=== PATIENT | female | born 1985 | race Caucasian/White ===

== ENCOUNTER → 2017-06-30 | Outpatient (CLI) | payer OTHER ==
[~2017-06-30] MED LIST: CENTRUM SILVER1 EAC4 PO; ELIQUIS5 MG PO; FAMOTIDINE20 MG PO; FEVERALL650 MG RECTAL; FOLIC ACID1 MG PO; IRON325 PO; LASIX 20 MG TAB20 MG PO; MICONAZOLE 324 GM VAG; ONDANSETRON HCL4 M2 PO; OXYBUTYNIN 5 MG5 M2 PO; OXYCODONE H5 MG/5 ML PO; OXYCODONE HCL 55 MG PO; OXYCODONE HCL10 MG PO; PERIDEX15 ML PO; POTASSIUM20 MEQ/15 PO; SYNTHROID100 MCG PO; UNASYN 3 GM VIAL3 G1 IV; VANCOMYCIN HCL 11 G2 IVPB; ZOSYN 3.373.375 GM/1 IV
== END ==
LOC: HYPER 06-24 06:42
DX: L89.154 Pressure ulcer of sacral region, stage 4 (principal); L89.324 Pressure ulcer of left buttock, stage 4; L89.314 Pressure ulcer of right buttock, stage 4; L89.612 Pressure ulcer of right heel, stage 2; L89.622 Pressure ulcer of left heel, stage 2; G82.21 Paraplegia, complete; R32 Unspecified urinary incontinence; B19.9 Unspecified viral hepatitis without hepatic coma; Z86.711 Personal history of pulmonary embolism; Z86.14 Personal history of Methicillin resistant Staphylococcus aureus infection

== ENCOUNTER 2017-08-05 06:48 | Inpatient (IN) | payer OTHER ==
[~2017-08-05] VITALS: Ht 172.7 cm; Wt 67.6 kg
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
--- NOTE | ~2017-08-05 | 2DMMODE ---
[facility] [address] [place] [address] 2 D/M-MODE ECHOCARDIOGRAM Name: RUBEN MOSS Room #: 210-P ADM IN M.R.#: [id number] Admission: 08/05/17 Attend Phys: Leander Eason, Discharge: Date of : 85 Date of Service: 08/11/17 1558 Report #: [id number] THIS REPORT FOR: //name// APPROVED REPORT Study performed: 08/11/2017 15:13:07 EXAM: Comprehensive 2D, Doppler, and color-flow Echocardiogram Patient Location: Bedside Room #: 210 BSA: 1.77 BP: 124/54 mmHg Rhythm: Tachycardia Other Information Study Quality: Adequate Indications MRSA, bacteremia 2D Dimensions RVDd: 27.02 mm LVEF(%): 54.17 (>50%) IVSd: 7.99 (7-11mm) LVOT Diam: 19.72 (18-24mm) LVDd: 46.44 mm PWd: 7.73 (7-11mm) Ascending Ao: 21.99 (22-36mm) LVDs: 33.46 (25-40mm) Aortic Root: 24.21 mm IVC: 20.00 mm Bragg's LVEF: 54.17 % Volumes Left Atrial Volume (Systole) Single Plane 4CH: 8.56 mL Single Plane 2CH: 20.00 mL LA ESV Index: 9.00 mL/m2 Aortic Valve AoV Peak Melvin.: 1.58 m/s AO Peak Gr.: 9.93 mmHg LVOT Max P.57 mmHg LVOT Max V: 1.18 m/s YESENIA Vmax: 2.29 cm2 Mitral Valve E/A Ratio: 0.8 MV Decel. Time: 152.48 ms [facility] [place] [address] [place] [address] 2 D/M-MODE ECHOCARDIOGRAM Name: RUBEN MOSS Room #: [address] [place] [address] IN .R.#: [id number] Admission: 08/05/17 Attend Phys: Leander Eason, Discharge: Date of : 85 Date of Service: 08/11/17 1558 Report #: [id number] MV E Max Melvin.: 0.68 m/s MV A Melvin.: 0.83 m/s MV PHT: 44.22 ms IVRT: 78.43 ms Pulmonary Valve PV Peak Melvin.: 1.22 m/s PV Peak Gr.: 5.97 mmHg Pulmonary Vein P Vein S: 0.58 m/s P Vein A: 0.18 m/s P Vein D: 0.67 m/s P Vein A Dur.: 66.9 msec P Vein S/D Ratio: 0.87 Tricuspid Valve TR Peak Melvin.: 3.35 m/s RAP Estimate: 5.00 mmHg TR Peak Gr.: 44.83 mmHg PA Pressure: 50.00 mmHg Left Ventricle The left ventricle is normal size. There is normal LV segmental wall motion. There is normal left ventricular wall thickness. The left ventricular systolic function is normal. The left ventricular ejection fraction is within the normal range. LVEF is 50-55%. Mild diastolic dysfunction is present (impaired relaxation pattern). Right Ventricle The right ventricle is normal size. The right ventricular systolic function is normal. Atria The left atrium size is normal. The right atrium size is normal. Aortic Valve The aortic valve is normal in structure. No aortic regurgitation is present. There is no aortic valvular stenosis. Mitral Valve The mitral valve is normal in structure. There is no mitral valve regurgitation noted. No evidence of mitral valve stenosis. Tricuspid Valve The tricuspid valve is normal in structure. Trace to mild tricuspid regurgitation. PAP is estimated at [address] [facility] [place] [address] [place] [address] 2 D/M-MODE ECHOCARDIOGRAM Name: RUBEN MOSS Room #: 210-P [facility] IN ..#: [id number] Admission: 08/05/17 Attend Phys: Leander Eason, Discharge: Date of : 85 Date of Service: 08/11/17 1558 Report #: [id number] Pulmonic Valve The pulmonary valve is normal in structure. There is no pulmonic valvular regurgitation. Great Vessels The aortic root is normal in size. IVC is upper limits of normal in size and collapses >50% with inspiration. Pericardium There is no pericardial effusion. <Conclusion> The left ventricular systolic function is normal. EF 55% The aortic valve is normal in structure. No aortic regurgitation or stenosis The mitral valve is normal in structure. No mitral valve regurgitation noted. Pulmonary artery pressure of 50mmHg There is no pericardial effusion. <ELECTRONICALLY SIGNED> By: Joe Mauricio MD, FACC 08/11/17 1558 1558 1558 Joe Mauricio MD, FACC /INF
--- NOTE | ~2017-08-05 | EKG ---
[address] [address] ELECTROCARDIOGRAM REPORT Name: RUBEN MOSS Room #: 210-P ADM IN M.R.#: [id number] Admission: 08/05/17 Attend Phys: Leander Eason DO Discharge: Date of : 85 Report #: [id number] THIS REPORT FOR: //name// [facility] ED Test Date: 2017-08-05 Test Time: 11:29:20 Pat Name: RUBEN MOSS Department: Room: 210 P Gender: F Plate Fitter: eliud : 1985 Requested By: Dirk Catherine Order Number: [id number] MD: Bill Lemon Measurements Intervals [place] Rate: 176 P: 69 PA: 107 QRS: 52 QRSD: 80 T: -29 QT: 279 QTc: 478 Interpretive Statements Sinus tachycardia Borderline low voltage, extremity leads Artifact in lead(s) I,II,aVR,aVL,V1,V2,V3,V4,V5,V6 No previous ECG available for comparison Electronically Signed On 08-05-2017 15:32:44 SENIOR SUSTAINABILITY ADVISOR by Bill Lemon [email or web address] <ELECTRONICALLY SIGNED> By: Bill Lemon MD 08/05/17 1532 1129 [id number] Bill Lemon MD /EPI
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
--- NOTE | ~2017-08-05 | EKG ---
[address] [address] ELECTROCARDIOGRAM REPORT Name: RUBEN MOSS Room #: 210-P ADM IN M.R.#: [id number] Admission: 08/05/17 Attend Phys: Leander Eason DO Discharge: Date of : 85 Report #: [id number] THIS REPORT FOR: //name// [facility] Test Date: 2017-08-07 Test Time: 08:28:56 Pat Name: RUBEN MOSS Department: Room: 210 P Gender: F Network Consultant: GREGORIO : 1985 Requested By: Joe Mauricio Order Number: [id number] MD: Bill Lemon Measurements Intervals [place] Rate: 175 P: 89 MA: 111 QRS: 49 QRSD: 74 T: 50 QT: 306 QTc: 522 Interpretive Statements Sinus tachycardia Borderline low voltage, extremity leads Electronically Signed On 08-07-2017 9:55:46 ELECTRIC SYSTEM OPERATOR by Bill Lemon [email or web address] <ELECTRONICALLY SIGNED> By: Bill Lemon MD 08/07/17 0955 0828 0828 Bill Lemon MD /DEBO
[2017-08-05 06:49] VITALS: BP 111/55
[2017-08-05] MEDS ORDERED: PRO STAT PO (07:38)
[2017-08-05 09:13] LABS: HEMATOCRIT 22.7 % (37.0-47.0); HEMOGLOBIN 7.5 gm/dL (12.0-15.0); MCH 22.8 pg (26.0-34.0); PLATELET COUNT 168 thou/uL (150-400); RBC 3.29 mil/uL (4.20-5.00); RDW 19.6 % (10.5-14.5); WBC 4.2 thou/uL (4.0-11.0)
[2017-08-05 09:26] LABS: CALCIUM 7.7 mg/dL (8.5-10.1); CREATININE 0.7 mg/dL (0.6-1.0); POTASSIUM 3.4 mmol/L (3.5-5.1)
[2017-08-05 09:28] LABS: APTT 54.6 Seconds (24.5-32.8); INR 1.4; PROTIME 14.2 Seconds (9.3-11.4)
[2017-08-05 10:18] LABS: ABSOLUTE NEUTROPHILS 3.4 thou/uL (1.4-8.2)
[2017-08-05 10:19] LABS: ANISOCYTOSIS 1+; HYPOCHROMASIA 2+; MICROCYTES 2+; OVALOCYTES FEW
[2017-08-05 12:27] LABS: TSH 4.827 uIU/mL (0.358-3.740)
[2017-08-05 12:41] LABS: % SATURATION 16 % (20-39); IRON 12 ug/dL (50-170); TIBC 73 ug/dL (250-450)
[2017-08-05 13:50] VITALS: BP 91/41
[2017-08-05 14:02] VITALS: BP 109/65
[2017-08-05 15:12] VITALS: BP 113/62
[2017-08-05 20:15] VITALS: BP 108/61
[2017-08-06] VITALS (8 sets, daily range): BP systolic 81–106; BP diastolic 40–58
[2017-08-06 05:58] LABS: WBC 3.3 thou/uL (4.0-11.0)
[2017-08-06 06:00] LABS: HEMATOCRIT 22.5 % (37.0-47.0); HEMOGLOBIN 7.3 gm/dL (12.0-15.0); MCH 22.8 pg (26.0-34.0); MCHC 32.4 g/dL (28.0-37.0); MCV 70.2 fL (80.0-100.0); PLATELET COUNT 140 thou/uL (150-400); RDW 20.2 % (10.5-14.5)
[2017-08-06 06:21] LABS: ALBUMIN 1.2 g/dL (3.4-5.0); CALCIUM 7.4 mg/dL (8.5-10.1); CREATININE 0.7 mg/dL (0.6-1.0); MAGNESIUM 1.8 mg/dL (1.8-2.4); POTASSIUM 3.3 mmol/L (3.5-5.1); TOTAL BILIRUBIN 0.5 mg/dL (<0.1-1.0); TOTAL PROTEIN 5.3 g/dL (6.4-8.2)
[2017-08-06 07:00] LABS: ABSOLUTE NEUTROPHILS 2.6 thou/uL (1.4-8.2)
[2017-08-06 07:01] LABS: ANISOCYTOSIS 2+; HYPOCHROMASIA 2+; MICROCYTES 2+
[2017-08-07 01:31] LABS: CALCIUM 6.9 mg/dL (8.5-10.1); CREATININE 0.8 mg/dL (0.6-1.0); MCH 22.8 pg (26.0-34.0); MCHC 32.3 g/dL (28.0-37.0); MCV 70.6 fL (80.0-100.0); POTASSIUM 3.1 mmol/L (3.5-5.1); RBC 2.77 mil/uL (4.20-5.00); RDW 19.8 % (10.5-14.5); WBC 2.7 thou/uL (4.0-11.0)
[2017-08-07 01:35] LABS: HEMATOCRIT 19.6 % (37.0-47.0); HEMOGLOBIN 6.3 gm/dL (12.0-15.0)
[2017-08-07 04:01] LABS: ATYPICAL LYMPHS 1 %
[2017-08-07 04:03] LABS: PLATELET COUNT ND thou/uL (150-400)
[2017-08-07 04:04] LABS: ANISOCYTOSIS 3+; HYPOCHROMASIA SLIGHT; MICROCYTES 1+
[2017-08-07 04:35] VITALS: BP 104/55; BP 113/54
[2017-08-07 04:43] VITALS: BP 87/49
[2017-08-07 07:55] VITALS: BP 113/53
[2017-08-07 09:06] LABS: AMP/METHAMP Negative (Negative); BARBITURATES Negative (Negative); BENZODIAZEPINES Negative (Negative); COCAINE Negative (Negative); METHADONE Negative (Negative); OPIATES POSITIVE (Negative); PCP Negative (Negative)
[2017-08-07 11:15] VITALS: BP 99/41
[2017-08-07 16:00] VITALS: BP 108/47
[2017-08-07 20:30] VITALS: BP 101/56
[2017-08-08 04:00] LABS: WBC 2.9 thou/uL (4.0-11.0)
[2017-08-08 04:03] LABS: HEMATOCRIT 23.5 % (37.0-47.0); HEMOGLOBIN 7.6 gm/dL (12.0-15.0); MCH 23.9 pg (26.0-34.0); MCHC 32.3 g/dL (28.0-37.0); MCV 73.8 fL (80.0-100.0); RBC 3.18 mil/uL (4.20-5.00); RDW 21.1 % (10.5-14.5)
[2017-08-08 04:32] LABS: CALCIUM 7.2 mg/dL (8.5-10.1); CREATININE 0.7 mg/dL (0.6-1.0)
[2017-08-08 04:36] LABS: POTASSIUM 2.4 mmol/L (3.5-5.1)
[2017-08-08 05:06] LABS: ABSOLUTE NEUTROPHILS 2.2 thou/uL (1.4-8.2); ANISOCYTOSIS 3+; HYPOCHROMASIA 1+; LARGE PLATELETS OCCASIONAL; MICROCYTES 1+; PLATELET COUNT 155 thou/uL (150-400)
[2017-08-08 05:40] VITALS: BP 95/49
[2017-08-08 07:10] VITALS: BP 88/49
[2017-08-08 11:20] VITALS: BP 84/46
[2017-08-08 15:17] LABS: CALCIUM 7.5 mg/dL (8.5-10.1); CREATININE 0.7 mg/dL (0.6-1.0)
[2017-08-08 15:18] LABS: MAGNESIUM 1.9 mg/dL (1.8-2.4)
[2017-08-08 15:34] LABS: POTASSIUM 2.8 mmol/L (3.5-5.1)
[2017-08-08 16:25] VITALS: BP 83/51
[2017-08-08 19:45] VITALS: BP 93/55
[2017-08-09 05:57] VITALS: BP 92/60
[2017-08-09 07:05] VITALS: BP 92/58
[2017-08-09 11:05] VITALS: BP 93/54
[2017-08-09 16:50] VITALS: BP 81/53
[2017-08-09 19:46] VITALS: BP 97/52
[2017-08-10 04:10] VITALS: BP 108/62
[2017-08-10 07:30] VITALS: BP 94/55
[2017-08-10 08:27] LABS: HEMATOCRIT 24.7 % (37.0-47.0); HEMOGLOBIN 7.9 gm/dL (12.0-15.0); MCH 23.6 pg (26.0-34.0); MCV 73.8 fL (80.0-100.0); RBC 3.35 mil/uL (4.20-5.00); RDW 21.3 % (10.5-14.5); WBC 2.6 thou/uL (4.0-11.0)
[2017-08-10 08:41] LABS: CREATININE 0.8 mg/dL (0.6-1.0); POTASSIUM 3.1 mmol/L (3.5-5.1); TOTAL BILIRUBIN 0.2 mg/dL (<0.1-1.0); TOTAL PROTEIN 4.8 g/dL (6.4-8.2)
[2017-08-10 11:00] VITALS: BP 102/64
[2017-08-10 11:29] LABS: URINE BILIRUBIN NEGATIVE (Negative); URINE BLOOD TRACE (Negative); URINE CLARITY CLEAR; URINE COLOR YELLOW; URINE GLUCOSE-RANDOM* NEGATIVE (Negative); URINE KETONES NEGATIVE (Negative); URINE LEUKOCYTES-REFLEX 1+ (Negative); URINE NITRITE-REFLEX NEGATIVE (Negative); URINE PROTEIN (DIPSTICK) NEGATIVE (Negative); URINE SPECIFIC GRAVITY 1.015 (1.005-1.035); URINE UROBILINOGEN 0.2 E.U./dl (0.2-1.0)
[2017-08-10 11:42] LABS: CASTS None Seen /LPF (None Seen); SQUAMOUS 4-10 Moderate /LPF (0-3)
[2017-08-10 11:43] LABS: BACTERIA-REFLEX 1-9 Few /HPF (None Seen); CALCIUM OXALATE 0-3 Few /LPF (None Seen); URINE RBC 0-2 Rare /HPF (0-2); URINE WBC-REFLEX 6-15 Few /HPF (0-5); YEAST-REFLEX Present (None Seen)
[2017-08-10 15:50] VITALS: BP 115/73
[2017-08-10 19:57] VITALS: BP 114/65
[2017-08-11 04:19] VITALS: BP 124/73
[2017-08-11 05:51] LABS: HEMATOCRIT 25.8 % (37.0-47.0); HEMOGLOBIN 8.3 gm/dL (12.0-15.0); MCH 23.9 pg (26.0-34.0); MCHC 32.2 g/dL (28.0-37.0); MCV 74.2 fL (80.0-100.0); RBC 3.48 mil/uL (4.20-5.00); WBC 3.5 thou/uL (4.0-11.0)
[2017-08-11 05:58] LABS: ALBUMIN 1.1 g/dL (3.4-5.0); CALCIUM 7.4 mg/dL (8.5-10.1); CREATININE 0.6 mg/dL (0.6-1.0); POTASSIUM 3.3 mmol/L (3.5-5.1); TOTAL BILIRUBIN 0.3 mg/dL (<0.1-1.0); TOTAL PROTEIN 5.3 g/dL (6.4-8.2)
[2017-08-11 08:00] VITALS: BP 112/62
[2017-08-11 10:55] VITALS: BP 124/54
[2017-08-11 15:00] VITALS: BP 117/61
[2017-08-11 20:15] VITALS: BP 119/67
[2017-08-12 00:01] VITALS: BP 124/70
[2017-08-12 04:13] LABS: ABSOLUTE NEUTROPHILS 2.5 thou/uL (1.4-8.2); BASOPHILS 0.5 % (0.0-2.0); EOSINOPHILS 1.3 % (0.0-3.0); HEMATOCRIT 23.6 % (37.0-47.0); HEMOGLOBIN 7.7 gm/dL (12.0-15.0); LYMPHOCYTES 14.3 % (24.0-44.0); MCH 23.9 pg (26.0-34.0); MCHC 32.6 g/dL (28.0-37.0); MCV 73.3 fL (80.0-100.0); MONOCYTES 9.5 % (1.0-8.0); PLATELET COUNT 214 thou/uL (150-400); POLYS 74.4 % (36.0-66.0); RBC 3.22 mil/uL (4.20-5.00); RDW 20.8 % (10.5-14.5); WBC 3.3 thou/uL (4.0-11.0)
[2017-08-12 04:53] VITALS: BP 130/70
[2017-08-12 04:57] LABS: ANISOCYTOSIS 2+; HYPOCHROMASIA 1+; LARGE PLATELETS OCCASIONAL; MICROCYTES 1+; OVALOCYTES 1+; POLYCHROMASIA 1+
[2017-08-12 07:30] VITALS: BP 124/66
[2017-08-12 11:30] VITALS: BP 118/67
[2017-08-12 15:40] VITALS: BP 125/71
[2017-08-12 20:17] VITALS: BP 99/58
[2017-08-13 05:11] VITALS: BP 99/56
[2017-08-13 07:10] VITALS: BP 107/55
[2017-08-13] MEDS ORDERED: OXYCODONE HCL10 MG PO (09:30)
[2017-08-13] MEDS ORDERED: CIPRO I.V.400 MG/200 IV (10:00)
[2017-08-13] MEDS ORDERED: PEPCID20 MG PO (10:04)
[2017-08-13] MEDS ORDERED: ZYVOX600 MG PO (10:13)
[2017-08-13] MEDS ORDERED: CIPRO500 MG PO (10:13)
== END 2017-08-13 16:50 | DRG 919 ==
LOC: ER 06:48 → EROBS 10:21 → 2N 12:40
PROVIDERS: Emergency Medicine; Family Medicine; Hospitalist; Nurse Practitioner; Specialist
DX: T85.79XA Infection and inflammatory reaction due to other internal prosthetic devices, implants and grafts, initial encounter (principal); A41.9 Sepsis, unspecified organism; L89.894 Pressure ulcer of other site, stage 4; E43 Unspecified severe protein-calorie malnutrition; L89.154 Pressure ulcer of sacral region, stage 4; G82.20 Paraplegia, unspecified; M86.9 Osteomyelitis, unspecified; D62 Acute posthemorrhagic anemia; D64.9 Anemia, unspecified; S71.002A Unspecified open wound, left hip, initial encounter; I95.9 Hypotension, unspecified; R32 Unspecified urinary incontinence; B95.62 Methicillin resistant Staphylococcus aureus infection as the cause of diseases classified elsewhere; E03.9 Hypothyroidism, unspecified; Z68.22 Body mass index [BMI] 22.0-22.9, adult; Z93.3 Colostomy status; Z88.2 Allergy status to sulfonamides; Z79.899 Other long term (current) drug therapy; Z91.19 Patient's noncompliance with other medical treatment and regimen; Z23 Encounter for immunization
CPT/HCPCS: 10081

== ENCOUNTER 2017-10-16 23:00 | Inpatient (IN) | payer OTHER ==
[~2017-10-16] VITALS: Ht 162.6 cm; Wt 63.6 kg
--- NOTE | ~2017-10-16 | 2DMMODE ---
[facility] [address] [place] [address] 2 D/M-MODE ECHOCARDIOGRAM Name: AJAYRUBEN Room #: 246-P ADM IN M.R.#: [id number] Admission: 10/16/17 Attend Phys: Luke Jeffrey Discharge: Date of : 85 Date of Service: 10/17/17 1417 Report #: [id number] THIS REPORT FOR: //name// APPROVED REPORT Study performed: 10/17/2017 13:24:29 EXAM: Comprehensive 2D, Doppler, and color-flow Echocardiogram Patient Location: ICU Room #: [facility] Status: routine BSA: 1.62 HR: 85 bpm BP: 108/82 mmHg Other Information Study Quality: Good Indications Sepsis 2D Dimensions RVDd: 32.10 mm LVEF(%): 51.03 (>50%) IVSd: 6.87 (7-11mm) LVOT Diam: 19.93 (18-24mm) LVDd: 46.76 mm PWd: 6.87 (7-11mm) Ascending Ao: 29.58 (22-36mm) LVDs: 34.62 (25-40mm) Aortic Root: 26.28 mm IVC: 22.00 mm Bragg's LVEF: 51.03 % Volumes Left Atrial Volume (Systole) Single Plane 4CH: 23.90 mL Single Plane 2CH: 19.48 mL LA ESV Index: 18.00 mL/m2 Aortic Valve AoV Peak Melvin.: 1.20 m/s AO Peak Gr.: 5.74 mmHg LVOT Max P.69 mmHg LVOT Max V: 1.08 m/s YESENIA Vmax: 2.82 cm2 Mitral Valve E/A Ratio: 1.4 MV Decel. Time: 160.56 ms MV E Max Melvin.: 0.77 m/s [facility] [email or web address] [address] 2 D/M-MODE ECHOCARDIOGRAM Name: RUBEN MOSS Room #: 246-P [facility] IN M.R.#: [id number] Admission: 10/16/17 Attend Phys: Luke Jeffrey Discharge: Date of : 85 Date of Service: 10/17/17 1417 Report #: [id number] MV A Melvin.: 0.54 m/s MV PHT: 46.56 ms IVRT: 96.89 ms Pulmonary Valve PV Peak Melvin.: 0.87 m/s PV Peak Gr.: 3.02 mmHg Pulmonary Vein P Vein S: 0.69 m/s P Vein A: 0.26 m/s P Vein D: 0.44 m/s P Vein A Dur.: 87.7 msec P Vein S/D Ratio: 1.57 Tricuspid Valve TR Peak Melvin.: 3.03 m/s TR Peak Gr.: 36.83 mmHg PA Pressure: 47.00 mmHg Left Ventricle The left ventricle is normal size. There is normal left ventricular wall thickness. The left ventricular systolic function is normal. The left ventricular ejection fraction is within the normal range. LVEF is 55-60%. The left ventricular diastolic function is normal. Right Ventricle The right ventricle is normal size. The right ventricular systolic function is normal. Atria The left atrium size is normal. The right atrium size is normal. Aortic Valve The aortic valve is normal in structure. No aortic regurgitation is present. There is no aortic valvular stenosis. Mitral Valve The mitral valve is normal in structure. Trace mitral regurgitation. No evidence of mitral valve stenosis. Tricuspid Valve The tricuspid valve is normal in structure. There is trace tricuspid regurgitation. Estimated PAP 47 mmHg. There is moderate pulmonary hypertension. Pulmonic Valve The pulmonary valve is normal in structure. There is no pulmonic [place] [address] [place] [address] 2 D/M-MODE ECHOCARDIOGRAM Name: RUBEN MOSS Justen Room #: 246-P [facility] IN [facility].#: [id number] Admission: 10/16/17 Attend Phys: Luke Jeffrey Discharge: Date of : 85 Date of Service: 10/17/17 1417 Report #: [id number] valvular regurgitation. Great Vessels The aortic root is normal in size. IVC is dilated and collapses >50% with inspiration. Pericardium There is no pericardial effusion. <Conclusion> The left ventricle is normal size. LVEF is 55-60%. The aortic valve is normal in structure. The mitral valve is normal in structure. Trace mitral regurgitation. The tricuspid valve is normal in structure. There is trace tricuspid regurgitation. Estimated PAP 47 mmHg. There is moderate pulmonary hypertension. The pulmonary valve is normal in structure. There is no pericardial effusion. <ELECTRONICALLY SIGNED> By: Bartolome Barrera MD 10/17/17 1417 141 141 Bartolome Barrera MD /INF
--- NOTE | ~2017-10-16 | EKG ---
[address] [place] [address] ELECTROCARDIOGRAM REPORT Name: RUBEN MOSS Room #: 246-P ADM IN M.R.#: [id number] Admission: 10/16/17 Attend Phys: Luke Navas Discharge: Date of : 85 Report #: [id number] THIS REPORT FOR: //name// [facility] Test Date: 2017-10-17 Test Time: 06:38:10 Pat Name: RUBEN MOSS Department: Room: [facility] Gender: F Dispatcher Service Chief: GREGORIO : 1985 Requested By: Afua Monge Order Number: [id number] MD: Joe Mauricio Measurements Intervals [place] Rate: 154 P: 0 VA: 234 QRS: 41 QRSD: 85 T: -43 QT: 347 QTc: 556 Interpretive Statements Sinus tachycardia Low voltage, extremity leads Prolonged QT interval Compared to ECG 08/07/2017 08:28:56 No significant change was found Electronically Signed On 10-19-2017 13:34:47 CDT by Joe Mauricio [email or web address] <ELECTRONICALLY SIGNED> By: Joe Mauricio MD, [facility] 10/19/17 1334 7 Joe Mauricio MD, [facility] /EPI
--- NOTE | ~2017-10-16 | P ---
[facility] [place] [address] PROCEDURE REPORT Name: RUBEN MOSS Room #: 246-P [facility] IN M.R.#: [id number] Admission: 10/16/17 Attend Phys: Luke Navas Discharge: Date of : 85 Report #: [id number] THIS REPORT FOR: //name// CC: Luke George DATE OF SERVICE: 10/17/2017 PROCEDURE: Chest tube insertion. INDICATION: Right hydropneumothorax, the patient decompensating. PROCEDURE NOTATION: After obtaining informed consent with the patient who agreed to proceed on the current circumstances of her distress, procedure was done at the bedside in the ICU. The patient required 2 mg of lorazepam and 6 mg of morphine provided adequate sedation and analgesia. She also received 15 mL of 1% lidocaine local as well as 8 mL of 1% lidocaine with epinephrine. Once accomplished, she was in the left lateral recumbent position with her right arm above her head. By percussion, confirmed significant pneumothorax on the right and by landmarks plan chest tube insertion. Site was cleansed with 2% chlorhexidine gluconate and sterile field was created using sterile towels and using maximal barrier method including head gown, mask, gloves were utilized to provide adequate protection. Once accomplished, the patient received lidocaine as instructed. A small incision was made about 3 cm below the planned insertion on about the fourth intercostal space in the anterior axillary line. Using blunt dissection, tunnel was created and then the curved Ada clamps were then utilized to puncture over the rib into the pleural surface, a terrell of air was noted. A finger was inserted to palpate the area to confirm no lung adhesions to the chest wall. During this maneuver, the left glove was torn and some body fluid exposure was noted. Gloves were changed and then the patient was reassessed and a 28-Gabonese tube was inserted up to 14 cm at the skin surface. This was connected to a drainage system with good air leak noted as well as pleural fluid that was serosanguineous. This was sutured in place with 0 silk. One additional suture used to close the incision was noted. This was initially sutured in modified pursestring technique. This was dressed with petroleum gauze and other dry gauze. The patient tolerated well. No noted complications. Chest x-ray pending at the time of dictation. <ELECTRONICALLY SIGNED> By: Paolo Rocha MD 10/23/17 1122 1225 2324 Paolo Rocha MD /nt
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
--- NOTE | ~2017-10-16 | TEE ---
[facility] [address] [address] TRANSESOPHAGEAL ECHOCARDIOGRAM Name: RUBEN MOSS Room #: 246-P [facility] IN M.R.#: [id number] Admission: 10/16/17 Attend Phys: Luke Jeffrey Discharge: Date of : 85 Date of Service: 10/21/17912 Report #: [id number] THIS REPORT FOR: //name// APPROVED REPORT Study performed: 10/21/2017 08:15:46 EXAM: Comprehensive 2D, Doppler, and color-flow Echocardiogram Patient Location: ICU Room #: [facility] Status: routine BSA: 1.70 HR: 122 bpm BP: 85/46 mmHg Other Information Study Quality: Excellent Indications Endocarditis Procedure After obtaining informed consent, patient underwent transesophageal echo in the Bedside ICU. Type of Sedation : Conscious Sedation Sedation was administered by Nurse. Sedation start time: 819 Case end Time: 837 Sedation was achieved intravenously with: Versed (6 mg) Fentanyl (100 mcg) Transesophageal probe was inserted and advanced into esophagus without difficulty by Joe Mauricio MD. The KATIE was performed without complications. Throughout the procedure, the blood pressure, pulse oximetry, cardiac rhythm, and rate were monitored. The patient tolerated the procedure without adverse effects. Recovery from conscious sedation was uneventful and vital signs were stable. Left Ventricle The left ventricle is normal size. There is normal LV segmental wall motion. There is normal left ventricular wall thickness. The left ventricular systolic function is normal. The left ventricular ejection fraction is within the normal range. LVEF is 55-60%. [facility] [address] [place] [address] TRANSESOPHAGEAL ECHOCARDIOGRAM Name: RUBEN MOSS Justen Room #: 246-P [facility] IN M.R.#: [id number] Admission: 10/16/17 Attend Phys: Luke Jeffrey Discharge: Date of : 85 Date of Service: 10/21/17 0913 Report #: [id number] Right Ventricle The right ventricle is normal size. The right ventricular systolic function is normal. Atria The left atrium size is normal. The right atrium size is normal. Catheter tip is present in the right atrium. Aortic Valve The aortic valve is normal in structure. No aortic regurgitation is present. There is no aortic valvular stenosis. Mitral Valve The mitral valve is normal in structure. There is no mitral valve regurgitation noted. No evidence of mitral valve stenosis. Tricuspid Valve The tricuspid valve is normal in structure. There is no tricuspid valve regurgitation noted. Pulmonic Valve The pulmonary valve is normal in structure. There is no pulmonic valvular regurgitation. Great Vessels The aortic root is normal in size. The ascending aorta is normal in size. IVC is normal in size and collapses >50% with inspiration. Pericardium There is no pericardial effusion. Critical Notification Critical Value: No Physician Notified Date: 10/21/2017 <Conclusion> 1. Normal transesophogeal echocardiogram with Doppler 2. Structural valve disease was absent. No significant regurgitant or stenotic lesions 3. No pericardial effusion <ELECTRONICALLY SIGNED> By: Joe Mauricio MD, [facility] 10/21/17912 2 2 Joe Mauricio MD, FACC /INF
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
--- NOTE | ~2017-10-16 | S ---
[facility] [place] [address] SURGICAL PATH RPT PROCEDURE Name: LYDIA BATISTA Room #: 362-P ADM IN M.R.#: [id number] Admission: 10/16/17 Date of : 85 Discharge: Report #: [id number] Path Case #: [id number] PATHOLOGY REPORT COLLECTION DATE: 10/30/2017 RECEIVED DATE: 10/31/2017 SUBMITTING PHYS: Dr. Laron Christie OTHER PHYS: Dr. Luke George SPECIMEN(S) RECEIVED: A.Right pleural exudate * * * * * * * * * * * * FINAL DIAGNOSIS: Right pleural exudate: - Marked acute and chronic inflammation associated with fibrinopurulent material, consistent with an exudate. - Pleural surface showing reactive changes as well as congestion. (IUV:tish; 11/03/2017) PATHOLOGIST: Aga Garza M.D. REPORT ELECTRONICALLY SIGNED BY: Aga Garza M.D. DATE/TIME: 11/03/2017 13:30 * * * * * * * * * * * * GROSS PATHOLOGY: The specimen is received in formalin labeled "Lydia Batista, right pleural exudate". Received are multiple segments of pink-martinez soft tissue admixed with white-bowen possible exudate measuring 9.2 x 9.1 x 1.9 cm in aggregate dimensions. The specimen is submitted representatively in cassette A1. (CAA; 10/31/2017) CLINICAL HISTORY: Right empyema INITIAL CPT CODE(S): A; 86544 Professional services performed by [facility] at [facility] [address], [place] [address] Technical services performed by [facility] at [address] [place] [id number]. [facility] [address] [place] [address] SURGICAL PATH RPT PROCEDURE Name: LYDIA BATISTA Room #: 362-P [facility] IN .R.#: [id number] Admission: 10/16/17 Date of : 85 Discharge: Report #: [id number] Path Case #: [id number] [facility] [address] [place] [id number] PHONE: [phone] DIRECTOR: Cesar Ordonez M.D. * * * END OF REPORT * * *
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
--- NOTE | ~2017-10-16 | EKG ---
[address] [place] [address] ELECTROCARDIOGRAM REPORT Name: RUBEN MOSS Room #: 246-P ADM IN M.R.#: [id number] Admission: 10/16/17 Attend Phys: Luke Navas Discharge: Date of : 85 Report #: [id number] THIS REPORT FOR: //name// [facility] ED Test Date: 2017-10-16 Test Time: 23:38:57 Pat Name: RUBEN MOSS Department: Room: 246 Gender: F Rn On Site: MZOOK : 1985 Requested By: Dirk Catherine Order Number: [id number] MD: Joe Mauricio Measurements Intervals [place] Rate: 147 P: 0 AR: 63 QRS: 28 QRSD: 80 T: 44 QT: 344 QTc: 539 Interpretive Statements Sinus tachycardia Prolonged QT interval Compared to ECG 08/07/2017 08:28:56 Low voltage in the lateral leads no longer present Electronically Signed On 10-19-2017 13:29:39 CDT by Joe Mauricio [email or web address] <ELECTRONICALLY SIGNED> By: Joe Mauricio MD, [facility] 10/19/17 1329 2338 2338 Joe Mauricio MD, [facility] /EPI
[~2017-10-16 23:00] MED LIST changes: +CIPRO I.V.400 MG/200 IV; +CIPRO500 MG PO; +PEPCID20 MG PO; +PRO STAT PO; +ZYVOX600 MG PO
[2017-10-16 23:02] VITALS: BP 89/59
[2017-10-16 23:42] LABS: CALCIUM 8.2 mg/dL (8.5-10.1); CREATININE 1.3 mg/dL (0.6-1.0); POTASSIUM 4.1 mmol/L (3.5-5.1)
[2017-10-17] VITALS (79 sets, daily range): BP systolic 65–129; BP diastolic 11–87
[2017-10-17 01:05] LABS: HEMATOCRIT 23.5 % (37.0-47.0); HEMOGLOBIN 7.5 gm/dL (12.0-15.0); MCH 22.8 pg (26.0-34.0); MCHC 31.9 g/dL (28.0-37.0); MCV 71.5 fL (80.0-100.0); RBC 3.29 mil/uL (4.20-5.00); RDW 19.9 % (10.5-14.5); WBC 3.6 thou/uL (4.0-11.0)
[2017-10-17 01:20] LABS: PLATELET COUNT 127 thou/uL (150-400)
[2017-10-17 02:06] LABS: ABSOLUTE NEUTROPHILS 2.7 thou/uL (1.4-8.2)
[2017-10-17 02:07] LABS: ANISOCYTOSIS 2+; HYPOCHROMASIA 1+; LARGE PLATELETS OCCASIONAL; MICROCYTES 1+; POLYCHROMASIA OCCASIONAL
[2017-10-17 02:09] LABS: PLATELET ESTIMATE NOR
[2017-10-17 02:53] LABS: ALBUMIN 1.4 g/dL (3.4-5.0); DIRECT BILIRUBIN 0.1 mg/dL (<0.1-0.3); TOTAL BILIRUBIN 0.6 mg/dL (<0.1-1.0); TOTAL PROTEIN 6.6 g/dL (6.4-8.2)
[2017-10-17 03:29] LABS: BE(vivo) -8.5 mmol/L (-2 to +3); HCO3 15.7 mmol/L (22.0-26.0); PCO2 27.9 mmHg (35.0-45.0); pH 7.368 (7.360-7.450); sO2 93.2 % (92.0-98.0)
[2017-10-17 04:18] LABS: URINE BILIRUBIN NEGATIVE (Negative); URINE BLOOD 1+ (Negative); URINE CLARITY CLEAR; URINE COLOR YELLOW; URINE GLUCOSE-RANDOM* NEGATIVE (Negative); URINE KETONES NEGATIVE (Negative); URINE NITRITE-REFLEX NEGATIVE (Negative); URINE PROTEIN (DIPSTICK) 2+ (Negative); URINE UROBILINOGEN 0.2 E.U./dl (0.2-1.0)
[2017-10-17 04:20] LABS: URINE LEUKOCYTES-REFLEX TRACE (Negative)
[2017-10-17 04:41] LABS: CASTS None Seen /LPF (None Seen); MUCUS None Seen strn/LPF (None Seen); SQUAMOUS 0-3 Few /LPF (0-3)
[2017-10-17 04:43] LABS: AMORPHOUS URATES Many /LPF (None Seen); BACTERIA-REFLEX 1-9 Few /HPF (None Seen); CRYSTALS None Seen /LPF (None Seen); URINE RBC 0-2 Rare /HPF (0-2); URINE WBC-REFLEX 0-5 Rare /HPF (0-5)
[2017-10-17 05:08] LABS: APTT 41.8 Seconds (24.5-32.8); FIBRINOGEN 256.4 mg/dL (210-360); INR 1.6; PROTIME 16.6 Seconds (9.3-11.4)
[2017-10-17 06:16] LABS: CALCIUM 7.7 mg/dL (8.5-10.1); CREATININE 1.1 mg/dL (0.6-1.0); POTASSIUM 3.4 mmol/L (3.5-5.1)
[2017-10-17 09:20] LABS: CALCIUM 7.6 mg/dL (8.5-10.1); POTASSIUM 3.6 mmol/L (3.5-5.1)
[2017-10-17 09:35] LABS: ABSOLUTE RETIC COUNT 0.0104 10^6/uL; OBSERVED RETIC COUNT 0.32 % (0.6-2.6)
[2017-10-17 09:41] LABS: % SATURATION 20 % (20-39); IRON 25 ug/dL (50-170); TIBC 125 ug/dL (250-450)
[2017-10-17 10:56] LABS: TSH 2.532 uIU/mL (0.358-3.740)
[2017-10-17 13:01] LABS: BE(vivo) -11.5 mmol/L (-2 to +3); HCO3 14.2 mmol/L (22.0-26.0); PCO2 31.3 mmHg (35.0-45.0); PO2 64.2 mmHg (80.0-100.0); sO2 90.2 % (92.0-98.0)
[2017-10-17 13:04] LABS: pH 7.276 (7.360-7.450)
[2017-10-17 13:58] LABS: CALCIUM 7.5 mg/dL (8.5-10.1); CREATININE 0.9 mg/dL (0.6-1.0)
[2017-10-17 14:03] LABS: POTASSIUM 2.8 mmol/L (3.5-5.1)
[2017-10-17 15:19] LABS: BE(vivo) -11.3 mmol/L (-2 to +3); HCO3 14.5 mmol/L (22.0-26.0); sO2 99.5 % (92.0-98.0)
[2017-10-17 15:20] LABS: pH 7.273 (7.360-7.450)
[2017-10-18] VITALS (96 sets, daily range): BP systolic 77–131; BP diastolic 49–110
[2017-10-18 05:08] LABS: HBsAG-EMPLOYEE EXPOSURE Negative (Negative); HCV AB-EMPLOYEE EXPOSURE 0.6 (0.0-0.9)
[2017-10-18 05:42] LABS: BE(vivo) -4.2 mmol/L (-2 to +3); HCO3 18.9 mmol/L (22.0-26.0); PCO2 27.5 mmHg (35.0-45.0); PO2 68.1 mmHg (80.0-100.0); pH 7.456 (7.360-7.450); sO2 94.8 % (92.0-98.0)
[2017-10-18 05:46] LABS: MCH 22.9 pg (26.0-34.0); MCHC 32.4 g/dL (28.0-37.0); WBC 4.3 thou/uL (4.0-11.0)
[2017-10-18 05:48] LABS: HEMATOCRIT 24.7 % (37.0-47.0); MCV 70.6 fL (80.0-100.0); RDW 19.6 % (10.5-14.5)
[2017-10-18 06:02] LABS: ALBUMIN 1.1 g/dL (3.4-5.0); CALCIUM 7.8 mg/dL (8.5-10.1); CREATININE 0.7 mg/dL (0.6-1.0); MAGNESIUM 1.7 mg/dL (1.8-2.4); POTASSIUM 3.6 mmol/L (3.5-5.1); TOTAL BILIRUBIN 0.4 mg/dL (<0.1-1.0); TOTAL PROTEIN 5.4 g/dL (6.4-8.2)
[2017-10-18 07:18] LABS: ABSOLUTE NEUTROPHILS 3.7 thou/uL (1.4-8.2); MICROCYTES 2+
[2017-10-18 07:19] LABS: ANISOCYTOSIS 1+; HYPOCHROMASIA 2+; POIKILOCYTOSIS SLIGHT
[2017-10-18 08:04] LABS: PLATELET COUNT 231 thou/uL (150-400)
[2017-10-18 15:19] LABS: MAGNESIUM 1.8 mg/dL (1.8-2.4); POTASSIUM 3.2 mmol/L (3.5-5.1)
[2017-10-19] VITALS (69 sets, daily range): BP systolic 75–117; BP diastolic 36–89
[2017-10-19 04:12] LABS: INR 1.3; PROTIME 13.2 Seconds (9.3-11.4)
[2017-10-19 04:13] LABS: CALCIUM 7.4 mg/dL (8.5-10.1); CREATININE 0.6 mg/dL (0.6-1.0); POTASSIUM 3.7 mmol/L (3.5-5.1)
[2017-10-19 04:25] LABS: HEMOGLOBIN 6.7 gm/dL (12.0-15.0); WBC 2.7 thou/uL (4.0-11.0)
[2017-10-19 04:28] LABS: HEMATOCRIT 20.2 % (37.0-47.0); MCH 22.8 pg (26.0-34.0); MCHC 32.9 g/dL (28.0-37.0); MCV 69.3 fL (80.0-100.0); PLATELET COUNT 158 thou/uL (150-400); RBC 2.91 mil/uL (4.20-5.00); RDW 19.8 % (10.5-14.5)
[2017-10-19 05:55] LABS: ANISOCYTOSIS 2+; HYPOCHROMASIA 2+; LARGE PLATELETS FEW; MICROCYTES 2+; PLATELET ESTIMATE NORMAL
[2017-10-19 20:17] LABS: HEMOGLOBIN 6.6 gm/dL (12.0-15.0)
[2017-10-19 20:22] LABS: HEMATOCRIT 19.8 % (37.0-47.0)
[2017-10-20] VITALS (25 sets, daily range): BP systolic 72–104; BP diastolic 48–76
[2017-10-20 04:07] LABS: ALBUMIN 1.1 g/dL (3.4-5.0); CALCIUM 7.4 mg/dL (8.5-10.1); CREATININE 0.6 mg/dL (0.6-1.0); MAGNESIUM 1.6 mg/dL (1.8-2.4); PHOSPHORUS 2.7 mg/dL (2.5-4.9); POTASSIUM 3.2 mmol/L (3.5-5.1)
[2017-10-20 04:20] LABS: HEMATOCRIT 22.8 % (37.0-47.0); HEMOGLOBIN 7.7 gm/dL (12.0-15.0); MCH 24.1 pg (26.0-34.0); MCHC 33.6 g/dL (28.0-37.0); MCV 71.6 fL (80.0-100.0); RBC 3.19 mil/uL (4.20-5.00); RDW 19.7 % (10.5-14.5); WBC 2.5 thou/uL (4.0-11.0)
[2017-10-21] VITALS (41 sets, daily range): BP systolic 83–111; BP diastolic 40–78
[2017-10-21 17:55] LABS: HEMATOCRIT 22.9 % (37.0-47.0); HEMOGLOBIN 7.5 gm/dL (12.0-15.0); MCHC 32.8 g/dL (28.0-37.0); MCV 73.2 fL (80.0-100.0); RBC 3.13 mil/uL (4.20-5.00); RDW 20.1 % (10.5-14.5); WBC 2.5 thou/uL (4.0-11.0)
[2017-10-21 18:09] LABS: CALCIUM 7.4 mg/dL (8.5-10.1); CREATININE 0.5 mg/dL (0.6-1.0); POTASSIUM 3.2 mmol/L (3.5-5.1)
[2017-10-22] VITALS (20 sets, daily range): BP systolic 85–105; BP diastolic 52–73
[2017-10-22 05:45] LABS: HEMATOCRIT 27.4 % (37.0-47.0); HEMOGLOBIN 9.2 gm/dL (12.0-15.0); MCH 24.7 pg (26.0-34.0); MCHC 33.8 g/dL (28.0-37.0); MCV 73.2 fL (80.0-100.0); RBC 3.74 mil/uL (4.20-5.00); RDW 20.8 % (10.5-14.5); WBC 5.4 thou/uL (4.0-11.0)
[2017-10-22 06:06] LABS: ALBUMIN 1.1 g/dL (3.4-5.0); CALCIUM 7.5 mg/dL (8.5-10.1); CREATININE 0.7 mg/dL (0.6-1.0); POTASSIUM 3.9 mmol/L (3.5-5.1); TOTAL BILIRUBIN 0.6 mg/dL (<0.1-1.0); TOTAL PROTEIN 4.9 g/dL (6.4-8.2)
[2017-10-23] VITALS (12 sets, daily range): BP systolic 91–102; BP diastolic 49–64
[2017-10-23 04:27] LABS: ANION GAP 7 mmol/L (7-16); BUN 8 mg/dL (7-18); CALCIUM 7.3 mg/dL (8.5-10.1); CHLORIDE 107 mmol/L (98-107); CO2 24 mmol/L (21-32); CREATININE 0.6 mg/dL (0.6-1.0); MAGNESIUM 1.7 mg/dL (1.8-2.4); SGOT 10 U/L (15-37); SGPT < 6 U/L (30-65); SODIUM 138 mmol/L (136-145); TOTAL BILIRUBIN 0.5 mg/dL (<0.1-1.0); TOTAL PROTEIN 4.9 g/dL (6.4-8.2)
[2017-10-23 04:34] LABS: GLUCOSE 97 mg/dL (74-106)
[2017-10-23 04:45] LABS: HEMATOCRIT 28.4 % (37.0-47.0); HEMOGLOBIN 9.3 gm/dL (12.0-15.0); MCH 24.3 pg (26.0-34.0); MCHC 32.8 g/dL (28.0-37.0); RBC 3.83 mil/uL (4.20-5.00); RDW 21.2 % (10.5-14.5); WBC 5.7 thou/uL (4.0-11.0)
[2017-10-24] VITALS (22 sets, daily range): BP systolic 91–108; BP diastolic 45–70
[2017-10-25] VITALS (24 sets, daily range): BP systolic 82–106; BP diastolic 49–74
[2017-10-25 06:22] LABS: ALBUMIN 0.8 g/dL (3.4-5.0); CREATININE 0.6 mg/dL (0.6-1.0); MAGNESIUM 1.9 mg/dL (1.8-2.4); PHOSPHORUS 3.7 mg/dL (2.5-4.9); POTASSIUM 3.4 mmol/L (3.5-5.1)
[2017-10-26] VITALS (21 sets, daily range): BP systolic 88–102; BP diastolic 46–80
[2017-10-26 11:20] LABS: POTASSIUM 4.5 mmol/L (3.5-5.1)
[2017-10-27 05:26] LABS: ANION GAP 8 mmol/L (7-16); BUN 5 mg/dL (7-18); CALCIUM 7.3 mg/dL (8.5-10.1); CHLORIDE 103 mmol/L (98-107); CO2 24 mmol/L (21-32); CREATININE 0.5 mg/dL (0.6-1.0); MAGNESIUM 1.8 mg/dL (1.8-2.4); POTASSIUM 3.6 mmol/L (3.5-5.1); SGOT 12 U/L (15-37); SGPT < 6 U/L (30-65); SODIUM 135 mmol/L (136-145); TOTAL BILIRUBIN 0.3 mg/dL (<0.1-1.0)
[2017-10-27 05:35] LABS: GLUCOSE 107 mg/dL (74-106)
[2017-10-27 19:00] VITALS: BP 105/68
[2017-10-27 20:00] VITALS: BP 101/67
[2017-10-27 21:00] VITALS: BP 102/66
[2017-10-27 22:00] VITALS: BP 107/74
[2017-10-27 23:00] VITALS: BP 106/70
[2017-10-28] VITALS (20 sets, daily range): BP systolic 84–107; BP diastolic 48–77
[2017-10-29] VITALS (24 sets, daily range): BP systolic 83–112; BP diastolic 49–82
[2017-10-29 05:36] LABS: APTT 38.3 Seconds (24.5-32.8); INR 1.3; PROTIME 13.3 Seconds (9.3-11.4)
[2017-10-30] VITALS (19 sets, daily range): BP systolic 84–101; BP diastolic 46–74
[2017-10-30 04:25] LABS: HEMOGLOBIN 6.8 gm/dL (12.0-15.0); MCH 23.9 pg (26.0-34.0); RBC 2.84 mil/uL (4.20-5.00)
[2017-10-30 04:27] LABS: HEMATOCRIT 20.9 % (37.0-47.0); MCHC 32.5 g/dL (28.0-37.0); MCV 73.5 fL (80.0-100.0); RDW 22.4 % (10.5-14.5)
[2017-10-30 04:28] LABS: WBC 1.9 thou/uL (4.0-11.0)
[2017-10-30 04:41] LABS: ALBUMIN 0.8 g/dL (3.4-5.0); ANION GAP 9 mmol/L (7-16); BUN 4 mg/dL (7-18); CHLORIDE 105 mmol/L (98-107); CO2 23 mmol/L (21-32); CREATININE 0.5 mg/dL (0.6-1.0); GLUCOSE 83 mg/dL (74-106); POTASSIUM 2.8 mmol/L (3.5-5.1); SGOT 9 U/L (15-37); SGPT < 6 U/L (30-65); SODIUM 137 mmol/L (136-145); TOTAL BILIRUBIN 0.3 mg/dL (<0.1-1.0); TOTAL PROTEIN 4.4 g/dL (6.4-8.2)
[2017-10-30 04:43] LABS: APTT 38.3 Seconds (24.5-32.8); INR 1.4
[2017-10-30 05:19] LABS: HEMOGLOBIN 6.8 gm/dL (12.0-15.0); MCH 23.7 pg (26.0-34.0); MCHC 32.3 g/dL (28.0-37.0); MCV 73.5 fL (80.0-100.0); PLATELET COUNT 198 thou/uL (150-400); RBC 2.85 mil/uL (4.20-5.00); RDW 22.6 % (10.5-14.5)
[2017-10-30 05:20] LABS: WBC 1.6 thou/uL (4.0-11.0)
[2017-10-30 05:35] LABS: ANION GAP 7 mmol/L (7-16); BUN 4 mg/dL (7-18); CALCIUM 7.1 mg/dL (8.5-10.1); CHLORIDE 106 mmol/L (98-107); CO2 24 mmol/L (21-32); CREATININE 0.5 mg/dL (0.6-1.0); GLUCOSE 82 mg/dL (74-106); POTASSIUM 2.8 mmol/L (3.5-5.1); SODIUM 137 mmol/L (136-145)
[2017-10-30 05:41] LABS: ALBUMIN 0.9 g/dL (3.4-5.0); SGOT 10 U/L (15-37); SGPT < 6 U/L (30-65); TOTAL BILIRUBIN 0.3 mg/dL (<0.1-1.0); TOTAL PROTEIN 4.4 g/dL (6.4-8.2)
[2017-10-30 11:31] LABS: ABSOLUTE NEUTROPHILS 0.9 thou/uL (1.4-8.2)
[2017-10-30 11:32] LABS: ANISOCYTOSIS 2+; HYPOCHROMASIA 1+; MICROCYTES 1+; PLATELET ESTIMATE NORMAL
[2017-10-30 18:45] LABS: HEMATOCRIT 31.2 % (37.0-47.0); MCH 25.6 pg (26.0-34.0); MCHC 33.1 g/dL (28.0-37.0); MCV 77.5 fL (80.0-100.0); RBC 4.02 mil/uL (4.20-5.00); RDW 21.6 % (10.5-14.5); WBC 4.7 thou/uL (4.0-11.0)
[2017-10-30 18:46] LABS: HEMOGLOBIN 10.3 gm/dL (12.0-15.0)
[2017-10-30 19:25] LABS: APTT 37.3 Seconds (24.5-32.8); FIBRINOGEN 256.4 mg/dL (210-360); INR 1.4
[2017-10-31] VITALS (22 sets, daily range): BP systolic 92–115; BP diastolic 60–104
[2017-10-31 04:50] LABS: ABSOLUTE NEUTROPHILS 3.4 thou/uL (1.4-8.2); BASOPHILS 0.7 % (0.0-2.0); EOSINOPHILS 0.2 % (0.0-3.0); HEMATOCRIT 28.2 % (37.0-47.0); HEMOGLOBIN 9.6 gm/dL (12.0-15.0); LYMPHOCYTES 12.9 % (24.0-44.0); MCH 25.7 pg (26.0-34.0); MCHC 33.9 g/dL (28.0-37.0); MCV 75.8 fL (80.0-100.0); MONOCYTES 9.4 % (1.0-8.0); PLATELET COUNT 261 thou/uL (150-400); POLYS 76.8 % (36.0-66.0); RBC 3.71 mil/uL (4.20-5.00); RDW 21.8 % (10.5-14.5); WBC 4.4 thou/uL (4.0-11.0)
[2017-10-31 05:01] LABS: CALCIUM 7.2 mg/dL (8.5-10.1); CREATININE 0.4 mg/dL (0.6-1.0); POTASSIUM 3.8 mmol/L (3.5-5.1)
[2017-11-01] VITALS (23 sets, daily range): BP systolic 70–106; BP diastolic 47–82
[2017-11-02] VITALS (14 sets, daily range): BP systolic 79–98; BP diastolic 51–65
[2017-11-02 05:26] LABS: HEMATOCRIT 26.6 % (37.0-47.0); MCH 25.7 pg (26.0-34.0); MCHC 33.7 g/dL (28.0-37.0); MCV 76.3 fL (80.0-100.0); PLATELET COUNT 265 thou/uL (150-400); RBC 3.49 mil/uL (4.20-5.00); RDW 22.8 % (10.5-14.5); WBC 2.7 thou/uL (4.0-11.0)
[2017-11-02 05:45] LABS: ALBUMIN 0.9 g/dL (3.4-5.0); CALCIUM 7.3 mg/dL (8.5-10.1); CREATININE 0.6 mg/dL (0.6-1.0); MAGNESIUM 1.9 mg/dL (1.8-2.4); PHOSPHORUS 3.4 mg/dL (2.5-4.9); POTASSIUM 3.5 mmol/L (3.5-5.1)
[2017-11-02 06:49] LABS: ABSOLUTE NEUTROPHILS 1.9 thou/uL (1.4-8.2); ANISOCYTOSIS 2+
[2017-11-03 03:27] VITALS: BP 92/64
[2017-11-03 07:52] VITALS: BP 101/61
[2017-11-03 11:37] VITALS: BP 91/56
[2017-11-03 17:01] VITALS: BP 94/57
[2017-11-03 19:36] VITALS: BP 98/56
[2017-11-04 03:33] VITALS: BP 99/57
[2017-11-04 07:13] LABS: HEMATOCRIT 23.2 % (37.0-47.0); HEMOGLOBIN 7.7 gm/dL (12.0-15.0); MCH 25.7 pg (26.0-34.0); MCHC 33.2 g/dL (28.0-37.0); MCV 77.3 fL (80.0-100.0); PLATELET COUNT 215 thou/uL (150-400); RDW 22.7 % (10.5-14.5); WBC 2.2 thou/uL (4.0-11.0)
[2017-11-04 07:50] VITALS: BP 95/57
[2017-11-04 09:52] LABS: ABSOLUTE NEUTROPHILS 1.5 thou/uL (1.4-8.2); ANISOCYTOSIS 1+; HYPOCHROMASIA 2+; PLATELET ESTIMATE NORMAL
[2017-11-04 11:50] VITALS: BP 93/54
[2017-11-04 15:49] VITALS: BP 92/69
[2017-11-04] MEDS ORDERED: ENOXAPARIN40 MG/0.1 SUBQ (17:47)
[2017-11-04] MEDS ORDERED: ZYVOX600 MG/300 IVPB (17:47)
== END 2017-11-04 21:40 | disposition short-term general hospital (02) | DRG 853 ==
LOC: ER 23:00 → EROBS 23:58 → ICU 23:58 → 3W 11-02 12:59
PROVIDERS: Emergency Medicine; Family Medicine; Hospitalist; Internal Medicine Pulmonary Disease; Nurse Practitioner; Nurse Practitioner Family; Specialist; Thoracic Surgery (Cardiothoracic Vascular Surgery)
PROC: B24BZZ4 Ultrasonography of Heart with Aorta, Transesophageal (ICD-10-PCS; principal; 2017-10-17)
PROC: 02HV33Z Insertion of Infusion Device into Superior Vena Cava, Percutaneous Approach (ICD-10-PCS; principal; 2017-10-17)
PROC: 0W9930Z Drainage of Right Pleural Cavity with Drainage Device, Percutaneous Approach (ICD-10-PCS; principal; 2017-10-17)
PROC: 30233N1 Transfusion of Nonautologous Red Blood Cells into Peripheral Vein, Percutaneous Approach (ICD-10-PCS; 2017-10-19)
PROC: 3E03317 Introduction of Other Thrombolytic into Peripheral Vein, Percutaneous Approach (ICD-10-PCS; 2017-10-22)
PROC: 0W9930Z Drainage of Right Pleural Cavity with Drainage Device, Percutaneous Approach (ICD-10-PCS; 2017-10-27)
PROC: 0BNK0ZZ Release Right Lung, Open Approach (ICD-10-PCS; 2017-10-30)
DX: A41.02 Sepsis due to Methicillin resistant Staphylococcus aureus (principal); J18.1 Lobar pneumonia, unspecified organism; R65.21 Severe sepsis with septic shock; J86.9 Pyothorax without fistula; E43 Unspecified severe protein-calorie malnutrition; J10.08 Influenza due to other identified influenza virus with other specified pneumonia; L89.154 Pressure ulcer of sacral region, stage 4; L89.204 Pressure ulcer of unspecified hip, stage 4; L89.894 Pressure ulcer of other site, stage 4; L89.623 Pressure ulcer of left heel, stage 3; L89.613 Pressure ulcer of right heel, stage 3; N17.9 Acute kidney failure, unspecified; G82.20 Paraplegia, unspecified; D61.818 Other pancytopenia; G89.29 Other chronic pain; D64.9 Anemia, unspecified; Y95 Nosocomial condition; D50.9 Iron deficiency anemia, unspecified; E87.6 Hypokalemia; E83.42 Hypomagnesemia; F19.188 Other psychoactive substance abuse with other psychoactive substance-induced disorder; F11.10 Opioid abuse, uncomplicated; Z93.3 Colostomy status; Z79.899 Other long term (current) drug therapy; Z88.2 Allergy status to sulfonamides; Z86.718 Personal history of other venous thrombosis and embolism; Z86.711 Personal history of pulmonary embolism; Z68.24 Body mass index [BMI] 24.0-24.9, adult
CPT/HCPCS: 10078; 10879; 27000; 47405; 50010; 50101; 50386; 50417; 50497; 51301; 56524; 56525; 56526; 56527; 56528; 62110; 62900; 70005